=== PATIENT | male | born 1990 | race Caucasian/White ===

== ENCOUNTER 2018-01-12 18:31 | Emergency (ER) | payer SELFPAY ==
[~2018-01-12 18:31] MED LIST: Z.0.NO CURRENT MEDS
[2018-01-12 19:24] VITALS: BP 129/91; PULSE 81; RESP 16; TEMP 98.1; O2SAT 100
[2018-01-12] MEDS ORDERED: IBUP1TAB7 PO (19:54)
[2018-01-12] MEDS ORDERED: BACTOIN EACH NARE (19:54)
[2018-01-12] MEDS ORDERED: BACT800T5 PO (19:54)
[2018-01-12] MEDS ORDERED: SULFAMETHOXAZOLE-TRIMETHOPRIM DS 800-160 MG TAB PO ONE (20:00)
[2018-01-12] MEDS ORDERED: IBUPROFEN 800 MG TAB PO ONE (20:00)
--- NOTE | 2018-01-12 20:00 | PD ---
HPI Chief Complaint: Skin Problem Time Seen by Provider: 19:53 Travel History International Travel<30 days: No Contact w/Intl Traveler<30days: No Traveled to known affect area: No History of Present Illness HPI 27-year-old male presents emergency department with 3 day history of worsening nostril pain and swelling. Patient states he started with a small pimple to the right inner lateral naris 3 days ago with increasing pain, swelling, and erythema. He has had no significant drainage from the area. He is now starting to have some swelling into the right cheek but this is mild. He denies headache, fever, chills, increased pain with eye movement, sore throat , or other rash. Pain is currently 9 out of 10. 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 He has no previous history of MRSA. Patient has no known drug allergies. PFSH Past Surgical History Appendectomy: Yes Other Surgery: Yes (hernia repair as child) Social History Alcohol Use: Yes (socially) Tobacco Use: Yes (1/2ppd) Substance Use: Yes (marijuanna) Allergies-Medications (Allergen,Severity, Reaction): Coded Allergies: No Known Allergies (Verified Adverse Reaction, Unknown, 01/12/18) Reported Meds & Prescriptions Reported Meds & Active Scripts Active Reported No Current Meds (Miscellaneous Medication) Misc Review of Systems Except as stated in HPI: all other systems reviewed are Neg General / Constitutional: No: Fever Eyes: No: Visual changes HENT: No: Headaches Cardiovascular: No: Chest Pain or Discomfort Respiratory: No: Shortness of Breath Gastrointestinal: No: Abdominal Pain Genitourinary: No: Dysuria Musculoskeletal: No: Pain Skin: Positive Lesions (See history of present illness), No Rash Neurologic: No: Weakness Psychiatric: No: Depression Endocrine: No: Polydipsia Hematologic/Lymphatic: No: Easy Bruising Physical Exam Narrative GENERAL: Patient appears in mild to moderate distress. SKIN: Warm and dry. Normal color. Normal turgor. Patient has erythema and swelling to the right naris of the nose. HEAD: Atraumatic. Normocephalic. No significant swelling noted other than on the nose. EYES: Pupils equal and round. No scleral icterus. No injection or drainage. Ocular motions are full without tenderness per ENT: No nasal bleeding or discharge. Patient is noted to have what appears to be a abscess with pointing to the inner side of the right lateral naris, suggestive of MRSA versus impetigo. Mucous membranes pink and moist. TMs are clear. Pharynx is clear. Airway is patent. NECK: Trachea midline. Supple and nontender without lymphadenopathy CARDIOVASCULAR: Regular rate and rhythm. RESPIRATORY: No accessory muscle use. Clear to auscultation. Breath sounds equal bilaterally. MUSCULOSKELETAL: Extremities without clubbing, cyanosis, or edema. No obvious deformities. NEUROLOGICAL: Awake and alert. No obvious cranial nerve deficits. Motor grossly within normal limits. Five out of 5 muscle strength in the arms and legs. Normal speech. PSYCHIATRIC: Appropriate mood and affect; insight and judgment normal. Data Data Last Documented VS Vital Signs Date Time Temp Pulse Resp B/P (MAP) Pulse Ox O2 Delivery O2 Flow Rate FiO2 01/12/18 19:24 98.1 81 16 129/91 (104) 100 Orders Orders Sulfamet-Trimeth Ds 800-160 Mg (Bactrim (01/12/18 20:00) Ibuprofen (Motrin) (01/12/18 20:00) MDM Medical Decision Making Medical Screen Exam Complete: Yes Emergency Medical Condition: Yes Differential Diagnosis Nasal MRSA. Abscess. Nasal cellulitis. Narrative Course Patient is felt to be medically stable at this time. Patient is given Bactrim DS p.o. 1. Patient is given ibuprofen 800 mg p.o. now. Patient is given a prescription for Bactrim DS twice daily 7 days per Patient is given a prescription for Bactroban ointment to be applied to the area twice daily for the next week Patient is given a prescription for ibuprofen 800 mg 3 times daily with food # 60. Patient to follow-up if symptoms do not improve or worsen as discussed Diagnosis Primary Impression: Cellulitis of mucous membrane of nose Patient Instructions: General Instructions, MRSA (Methicillin-Resistant Staphylococcus Aureus) (ED) Departure Forms: Work Release Enter return to work date: January 14, 2018 Additional Instructions: Patient is given Bactrim DS p.o. 1. Patient is given ibuprofen 800 mg p.o. now. Patient is given a prescription for Bactrim DS twice daily 7 days per Patient is given a prescription for Bactroban ointment to be applied to the area twice daily for the next week Patient is given a prescription for ibuprofen 800 mg 3 times daily with food # 60. Patient to follow-up if symptoms do not improve or worsen as discussed Med/Other Pt SpecificInfo: Prescription(s) given Scripts Ibuprofen (Ibuprofen) 800 Mg Tab 800 MG PO Q8H Y for Pain/Inflammation, #60 TAB 0 Refills Prov: Lawrence Dwyer MD 01/12/18 Mupirocin Nasal Oint (Bactroban Nasal Oint) 2% Oint 1 APPLIC EACH NARE BID for Mgmt Bacterial Infection, #1 TUBE 0 Refills For 5 days. Prov: Lawrence Dwyer MD 01/12/18 Sulfamethoxazole-Trimethoprim (Bactrim DS) 800-160 Mg Tab 1 TAB PO BID for Infection, #14 TAB 0 Refills Prov: Lawrence Dwyer MD 01/12/18 Disposition: 01 DISCHARGE HOME Condition: Stable Honorio Almanza January 12, 2018 20:00
== END 2018-01-12 20:14 | disposition home or self-care (01) ==
LOC: NEPK 18:31
DX: J34.0 Abscess, furuncle and carbuncle of nose (principal); F12.90 Cannabis use, unspecified, uncomplicated; F17.200 Nicotine dependence, unspecified, uncomplicated
CPT/HCPCS: 99283